=== PATIENT | female | born 1990 | race Caucasian/White ===

== ENCOUNTER 2018-09-06 20:50 | Emergency (ER) | payer BC ==
[~2018-09-06] VITALS: Ht 160 cm; Wt 53.6 kg
[2018-09-06 20:56] VITALS: Ht 160 cm; Wt 53.6 kg
[2018-09-06] MEDS ORDERED: LEXAPRO10 MG (20:57)
[2018-09-06] MEDS ORDERED: ABILIFY10 MG PO (20:57)
[2018-09-06] MEDS ORDERED: XANAX1 MG PO (20:57)
[2018-09-06] MEDS ORDERED: TORADOL10 MG PO (22:04)
[2018-09-06 22:21] VITALS: BP 111/78
== END 2018-09-06 22:22 | disposition home or self-care (01) ==
LOC: D.ER 20:50
DX: S20.211A Contusion of right front wall of thorax, initial encounter (principal); S40.011A Contusion of right shoulder, initial encounter; W20.8XXA Other cause of strike by thrown, projected or falling object, initial encounter; Y93.89 Activity, other specified; Y92.019 Unspecified place in single-family (private) house as the place of occurrence of the external cause; F17.200 Nicotine dependence, unspecified, uncomplicated